=== PATIENT | male | born 1990 | race American Indian/Alaskan Native ===

== ENCOUNTER 2018-03-21 04:36 | Emergency (ER) | payer SELFPAY ==
[2018-03-21 04:56] VITALS: RESP 18; TEMP 97.9
[2018-03-21] MEDS ORDERED: Lidocaine 5% Patch TD ONE (05:19)
--- NOTE | 2018-03-21 05:29 | ED PDOC ---
Arrival/HPI - General Chief Complaint: Back Pain Historian: Patient - History of Present Illness Narrative History of Present Illness (Text): 03/21/18 05:26 27 year old male, with no significant past medical history, presents to the emergency room with back pain. Patient informs pain is on his left side. Patient states he was sitting on the couch watching tv, when he suddenly felt a sharp pain there. Patient states he had back pain before, and was informed that he was having muscle spasms. Patient denies any fevers, chills, headache, dizziness, chest pain, shortness of breath, cough, abdominal pain, nausea, vomiting, diarrhea, neck pain, or any other complaint. Time/Duration: Prior to Arrival Symptom Onset: Sudden Quality: Stabbing Activities at Onset: Light Context: Home Past Medical History - Provider Review Nursing Documentation Reviewed: Yes - Psychiatric Hx Substance Use: Yes Family/Social History - Physician Review Nursing Documentation Reviewed: Yes Family/Social History: No Known Family HX Smoking Status: Never Smoked Hx Alcohol Use: No Hx Substance Use: Yes Substance used: marijuana daily Allergies/Home Meds Allergies/Adverse Reactions: Allergies No Known Allergies Allergy (Verified 03/21/18 04:58) Review of Systems - Physician Review All systems were reviewed & negative as marked: Yes - Review of Systems Constitutional: absent: Fevers, Night Sweats Respiratory: absent: SOB, Cough Cardiovascular: absent: Chest Pain Gastrointestinal: absent: Abdominal Pain, Diarrhea, Nausea, Vomiting Musculoskeletal: Back Pain. absent: Neck Pain Neurological: absent: Headache, Dizziness Physical Exam Vital Signs Reviewed: Yes Vital Signs Temp Pulse Resp BP Pulse Ox 03/21/18 04:56 97.9 F 88 18 125/71 97 Temperature: Afebrile Blood Pressure: Normal Pulse: Regular Respiratory Rate: Normal Appearance: Positive for: Well-Appearing, Non-Toxic, Comfortable Pain Distress: None Mental Status: Positive for: Alert and Oriented X 3 - Systems Exam Head: Present: Atraumatic, Normocephalic Pupils: Present: PERRL Extroacular Muscles: Present: EOMI Conjunctiva: Present: Normal Mouth: Present: Moist Mucous Membranes Neck: Present: Normal Range of Motion Respiratory/Chest: Present: Clear to Auscultation, Good Air Exchange. No: Respiratory Distress, Accessory Muscle Use Cardiovascular: Present: Regular Rate and Rhythm, Normal S1, S2. No: Murmurs Abdomen: No: Tenderness, Distention, Peritoneal Signs Back: Present: Paraspinal Tenderness (Left sided lumbar ) Upper Extremity: Present: Normal Inspection. No: Cyanosis, Edema Lower Extremity: Present: Normal Inspection. No: Edema Neurological: Present: GCS=15, CN II-XII Intact, Speech Normal Skin: Present: Warm, Dry, Normal Color. No: Rashes Psychiatric: Present: Alert, Oriented x 3, Normal Insight, Normal Concentration Medical Decision Making ED Course and Treatment: 03/21/18 05:31 Impression: 27 year old male presents with back pain Plan: -- Lidoderm -- Valium -- Toradol -- Urinalysis -- Reassess and disposition Prior Visits: Notes and results from previous visits were reviewed. Progress Notes: - Medication Orders Current Medication Orders: Discontinued Medications Diazepam (Valium) 5 mg PO ONCE ONE; Protocol Stop: 03/21/18 05:08 Ketorolac Tromethamine (Toradol) 60 mg IM STAT STA Stop: 03/21/18 05:08 Lidocaine (Lidoderm) 1 ea TD ONCE ONE Stop: 03/21/18 05:20 - Scribe Statement The provider has reviewed the documentation as recorded by the Henrique Thompson Provider Scribe Attestation: All medical record entries made by the Scribe were at my direction and personally dictated by me. I have reviewed the chart and agree that the record accurately reflects my personal performance of the history, physical exam, medical decision making, and the department course for this patient. I have also personally directed, reviewed, and agree with the discharge instructions and disposition. Disposition/Present on Arrival - Present on Arrival Any Indicators Present on Arrival: No History of DVT/PE: No History of Uncontrolled Diabetes: No Urinary Catheter: No History of Decub. Ulcer: No History Surgical Site Infection Following: None - Disposition Have Diagnosis and Disposition been Completed?: Yes Diagnosis: Back pain, Flank pain Disposition: HOME/ ROUTINE Disposition Time: 06:30 Patient Plan: Discharge Condition: IMPROVED Discharge Instructions (ExitCare): Low Back Pain (DC) Print Language: NIGERIAN Additional Instructions: All medical record entries made by the Scribe were at my direction and personally dictated by me. I have reviewed the chart and agree that the record accurately reflects my personal performance of the history, physical exam, medical decision making, and the department course for this patient. I have also personally directed, reviewed, and agree with the discharge instructions and disposition. Prescriptions: Cyclobenzaprine [Cyclobenzaprine HCl] 10 mg PO PRN PRN #6 tab PRN Reason: Muscle Spasm Lidocaine 5% [Lidoderm] 1 ea TD Q12 #5 patch Referrals: Michaela Dudley MD [Medical Doctor] - Follow up with primary [facility] [place]] - Follow up with primary Forms: [employer] (Sinhala)
[2018-03-21 06:41] VITALS: BP 125/72; PULSE 77; O2SAT 100
== END 2018-03-21 06:41 | disposition home or self-care (01) ==
LOC: ED 04:36
DX: M54.9 Dorsalgia, unspecified (principal); R10.9 Unspecified abdominal pain
CPT/HCPCS: 96372; 99283; J1885

== ENCOUNTER 2018-05-13 19:57 | Emergency (ER) | payer MEDICAID ==
[2018-05-13 20:07] VITALS: BMI 30.3
[2018-05-13 20:10] VITALS: BP 143/83; PULSE 89; RESP 18; TEMP 98.6; O2SAT 98
--- NOTE | 2018-05-13 21:11 | ED PDOC ---
Arrival/HPI - General Chief Complaint: Foreign Body Time Seen by Provider: 05/13/18 19:59 Historian: Patient - History of Present Illness Narrative History of Present Illness (Text): 05/13/18 21:11 A 27 year old male presents to the ed for further evaluation of a foreign body to the left ear. Patient states that he was cleaning his ear this evening with a Q-tip and the cotton tip got logged in the ear canal. Patient was unable to remove the foreign object and decided to come into the emergency department for removal. The patient denies fevers, chills, headache, dizziness, chest pain, shortness of breath, dyspnea on exertion, cough, abdominal pain, nausea, vomiting, diarrhea, back pain, neck pain, urinary/bowel changes, or any other complaint. Time/Duration: Prior to Arrival Symptom Onset: Sudden Symptom Course: Unchanged Activities at Onset: Rest Context: Home Past Medical History - Provider Review Nursing Documentation Reviewed: Yes - Infectious Disease Hx of Infectious Diseases: None - Psychiatric Hx Substance Use: Yes - Anesthesia Hx Anesthesia: Yes Hx Anesthesia Reactions: No Hx Malignant Hyperthermia: No Family/Social History - Physician Review Nursing Documentation Reviewed: Yes Family/Social History: No Known Family HX Smoking Status: Never Smoked Hx Alcohol Use: No Hx Substance Use: Yes Substance used: marijuana daily Allergies/Home Meds Allergies/Adverse Reactions: Allergies No Known Allergies Allergy (Verified 05/13/18 20:07) Home Medications: Home Meds Medication Instructions Recorded Confirmed No Known Home Med 05/13/18 05/13/18 Review of Systems - Physician Review All systems were reviewed & negative as marked: Yes - Review of Systems Constitutional: absent: Fevers ENT: Other (Foreign body in left ear. ) Respiratory: absent: SOB, Cough Cardiovascular: absent: Chest Pain, ABERNATHY Gastrointestinal: absent: Abdominal Pain, Stool Changes, Diarrhea, Nausea, Vomiting Genitourinary Male: absent: Urinary Output Changes Musculoskeletal: absent: Back Pain, Neck Pain Neurological: absent: Headache, Dizziness Physical Exam Vital Signs Reviewed: Yes Vital Signs Temp Pulse Resp BP Pulse Ox 05/13/18 20:10 98.6 F 89 18 143/83 98 Temperature: Afebrile Blood Pressure: Normal Pulse: Regular Respiratory Rate: Normal Appearance: Positive for: Well-Appearing, Non-Toxic, Comfortable Pain Distress: None Mental Status: Positive for: Alert and Oriented X 3 - Systems Exam Ears: Present: Other (foreign body: cotton ball to left ear canal. ) Medical Decision Making ED Course and Treatment: 05/13/18 21:18 Impression: A 27 year old male presents to the ED for further evaluation and removal of foreign body in the left ear canal. Plan: -- Reassess and disposition Progress Notes: 05/13/18 21:19 Cotton ball was easily removed using alligator forceps. Repeat exam showed clear TM. No foreign body. Patient tolerated procedure well and is in no acute distress. I have discussed the results and plan with the patient, who expresses understanding. Patient in agreement with plan to be discharged home. Patient is stable for discharge. Patient was instructed to follow up with physician or return if symptoms worsen or new concerning symptoms arise. - Scribe Statement The provider has reviewed the documentation as recorded by the Scribe Katty Neil Provider Scribe Attestation: All medical record entries made by the Scribe were at my direction and personally dictated by me. I have reviewed the chart and agree that the record accurately reflects my personal performance of the history, physical exam, medical decision making, and the department course for this patient. I have also personally directed, reviewed, and agree with the discharge instructions and disposition. Disposition/Present on Arrival - Present on Arrival Any Indicators Present on Arrival: No History of DVT/PE: No History of Uncontrolled Diabetes: No Urinary Catheter: No History of Decub. Ulcer: No History Surgical Site Infection Following: None - Disposition Have Diagnosis and Disposition been Completed?: Yes Diagnosis: Foreign body in ear Disposition: HOME/ ROUTINE Disposition Time: 21:13 Patient Plan: Discharge Patient Problems: Current Active Problems Problem Status Onset Foreign body in ear Acute Condition: GOOD Additional Instructions: Avoid placing q-tip deep in ear canal in the future Referrals: Guanakito Kelly MD [Primary Care Provider] - Follow up with primary Forms: [employer] (Luxembourgish)
== END 2018-05-13 21:15 | disposition home or self-care (01) ==
LOC: ED 19:57
DX: S00.452A Superficial foreign body of left ear, initial encounter (principal)